=== PATIENT | female | born 1995 | race Caucasian/White ===

== ENCOUNTER 2017-01-05 16:20 | Inpatient (IN) | payer OTHER ==
[2017-01-05 16:15] VITALS: O2SAT 100
[2017-01-05] MEDS ORDERED: ONDANSETRON HCL 4 MG/2 ML VIAL ONE (16:24)
[2017-01-05] MEDS ORDERED: MORPHINE SULFATE 8 MG/ML INJ ONE (16:24)
[2017-01-05] MEDS ORDERED: DIPHTH/TETANUS/ACEL PERTUSSIS (BOOSTER) 0.5 ML VIAL/PFS IM ONE (16:27)
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
[2017-01-05] MEDS ORDERED: IOHEXOL 350 MG/ML 10 ML VIAL (for RAD DIAG) IV ONE (16:56)
[2017-01-05] MEDS ORDERED: LORazepam 2 MG/ML VIAL ONE (16:56)
[2017-01-05] MEDS ORDERED: KETAMINE HCL 500 MG/5 ML VIAL ONE (16:56)
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
[2017-01-05] MEDS ORDERED: LIDOCAINE 1%/EPINEPHrine 1:100,000 SOLN 50 ML VIAL ONE (16:57)
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
[2017-01-05] MEDS ORDERED: KETAMINE HCL 500 MG/5 ML VIAL IV PUSH ONE (17:00)
[2017-01-05] MEDS ORDERED: LIDOCAINE 1%/EPINEPHrine 1:100,000 SOLN 20 ML VIAL INFIL ONE (17:00)
[2017-01-05] MEDS ORDERED: LORazepam 2 MG/ML VIAL IV PUSH ONE (17:00)
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
[2017-01-05 17:04] LABS: I-STAT POTASSIUM 3.4 MMOL/L (3.5-4.9)
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
[2017-01-05 17:06] LABS: AUTOMATED NEUTROPHIL # 8.3 TH/MM3 (1.8-7.7); BASOPHIL % 0.4 % (0.0-2.0); EOSINOPHIL # 0.2 TH/MM3 (0-0.4); EOSINOPHIL % 1.4 % (0.0-4.0); HEMATOCRIT 43.9 % (35.0-46.0); HEMO FLAGS DIFF FINAL; LYMPH % 26.5 % (9.0-44.0); LYMPHOCYTE # 3.3 TH/MM3 (1.0-4.8); MEAN CELL VOLUME 88.5 FL (80.0-100.0); MEAN CORPUSCULAR HEMOGLOBIN 29.2 PG (27.0-34.0); MONO % 5.7 % (0.0-8.0); PLATELET COUNT 315 TH/MM3 (150-450); RED BLOOD COUNT 4.96 MIL/MM3 (4.00-5.30); RED CELL DISTRIBUTION WIDTH 13.4 % (11.6-17.2); WHITE BLOOD COUNT 12.6 TH/MM3 (4.0-11.0)
[2017-01-05 17:15] LABS: PROTHROMBIN TIME - PATIENT 11.3 SEC (9.8-11.6)
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
[2017-01-05 18:09] VITALS: BP 124/65; PULSE 84; RESP 14
[2017-01-05] MEDS: SODIUM CHLOR 0.9% 1000 ML INJ 1,000 ML IV SCH (18:35)
[2017-01-05] MEDS ORDERED: MAGNESIUM HYDROXIDE SUSP 30 ML CUP PO PRN (18:45)
[2017-01-05] MEDS ORDERED: ONDANSETRON HCL 4 MG/2 ML VIAL IV PRN (18:45)
[2017-01-05] MEDS ORDERED: ENALAPRILAT 1.25 MG/ML VIAL IV PRN (18:45)
[2017-01-05] MEDS ORDERED: SODIUM CHLORIDE 0.9% FLUSH 10 ML FLUSH IV FLUSH PRN (18:45)
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
[2017-01-05] MEDS ORDERED: CLINDAMYCIN 600 MG/NS 100 ML IV ONE ×2 (19:00)
[2017-01-05 19:50] VITALS: BP 136/63; PULSE 87; O2SAT 86
[2017-01-05] MEDS ORDERED: PANTOPRAZOLE SODIUM 40 MG VIAL IVP SCH (20:00)
[2017-01-05 20:25] VITALS: BP 141/98; PULSE 98; RESP 16; O2SAT 100
[2017-01-05] MEDS ORDERED: DOCUSATE SODIUM 100 MG CAP PO SCH (21:00)
[2017-01-05] MEDS: ACETAMINOPHEN/HYDROcodone 325 MG/5 MG TAB PO PRN (21:17)
[2017-01-05 21:32] VITALS: BP 138/80; PULSE 98; RESP 18; TEMP 98.6; O2SAT 100
[2017-01-06] VITALS (7 sets, daily range): BP systolic 123–139; BP diastolic 70–77; PULSE 84–94; RESP 20; TEMP 96.6–99.6; O2SAT 92–100
[2017-01-06] MEDS: CLINDAMYCIN INJ 600 MG in SODIUM CHLORIDE 0.9% INJ 100 ML IV SCH ×3 (02:43→17:35)
[2017-01-06] MEDS: SODIUM CHLOR 0.9% 1000 ML INJ 1,000 ML IV SCH ×3 (03:39→19:50)
[2017-01-06] MEDS: ACETAMINOPHEN/HYDROcodone 325 MG/5 MG TAB PO PRN ×2 (06:39→11:30)
[2017-01-06] MEDS ORDERED: WALKER WHEELS/F1 MIS (07:56)
[2017-01-06] MEDS: METHOCARBAMOL 500 MG TAB PO SCH ×3 (08:41→22:46)
[2017-01-06] MEDS: DOCUSATE SODIUM 50 MG/SENNA 8.6 MG TAB PO SCH ×2 (08:41→19:50)
[2017-01-06 10:08] LABS: HEMATOCRIT 37.5 % (35.0-46.0); HEMO FLAGS DIFF FINAL; MEAN CELL VOLUME 88.4 FL (80.0-100.0); MEAN CORPUSCULAR HEMOGLOBIN 29.1 PG (27.0-34.0); MEAN CORPUSCULAR HGB CONC 32.9 % (32.0-36.0); PLATELET COUNT 207 TH/MM3 (150-450); RED BLOOD COUNT 4.25 MIL/MM3 (4.00-5.30); RED CELL DISTRIBUTION WIDTH 13.3 % (11.6-17.2); WHITE BLOOD COUNT 11.8 TH/MM3 (4.0-11.0)
[2017-01-06 10:09] LABS: AUTOMATED NEUTROPHIL # 9.9 TH/MM3 (1.8-7.7); BASOPHIL % 0.2 % (0.0-2.0); EOSINOPHIL % 0.1 % (0.0-4.0); LYMPH % 8.1 % (9.0-44.0); MONO % 8.1 % (0.0-8.0); NEUT % 83.5 % (16.0-70.0)
--- NOTE | 2017-01-06 18:21 | HHI.PR ---
Subjective Subjective Notes Complains of back pain Ambulated halls with PT Objective Vitals/I&O Vital Signs Date Time Temp Pulse Resp B/P Pulse Ox O2 Delivery O2 Flow Rate FiO2 01/06/17 15:43 98.6 86 20 124/77 99 01/05/17 20:25 Nasal Cannula 2 Labs Laboratory Tests Test 01/06/17 08:42 White Blood Count 11.8 Red Blood Count 4.25 Hemoglobin 12.3 Hematocrit 37.5 Mean Corpuscular Volume 88.4 Mean Corpuscular Hemoglobin 29.1 Mean Corpuscular Hemoglobin 32.9 Concent Red Cell Distribution Width 13.3 Platelet Count 207 Mean Platelet Volume 8.6 Neutrophils (%) (Auto) 83.5 Lymphocytes (%) (Auto) 8.1 Monocytes (%) (Auto) 8.1 Eosinophils (%) (Auto) 0.1 Basophils (%) (Auto) 0.2 Neutrophils # (Auto) 9.9 Lymphocytes # (Auto) 1.0 Monocytes # (Auto) 1.0 Eosinophils # (Auto) 0.0 Basophils # (Auto) 0.0 CBC Comment DIFF FINAL Differential Comment Radiology Last Impressions Pelvis X-Ray 01/05/171632 Signed Impressions: Service Date/Time: Thursday, January 05, 2017 16:16 - CONCLUSION: Negative trauma study. Sky Haney MD Head CT 01/05/171632 Signed Impressions: Service Date/Time: Thursday, January 05, 2017 16:30 - CONCLUSION: Mild soft tissue swelling with no evidence of fracture or hemorrhage. Sky Haney MD Chest X-Ray 01/05/171632 Signed Impressions: Service Date/Time: Thursday, January 05, 2017 16:16 - CONCLUSION: Negative trauma study. Sky Haney MD Chest CT 01/05/171632 Signed Impressions: Service Date/Time: Thursday, January 05, 2017 16:34 - CONCLUSION: Negative trauma CT. Sky Haney MD Cervical Spine CT 01/05/171632 Signed Impressions: Service Date/Time: Thursday, January 05, 2017 16:33 - CONCLUSION: Negative trauma CT. Sky Haney MD Abdomen/Pelvis CT 01/05/171632 Signed Impressions: Service Date/Time: Thursday, January 05, 2017 16:34 - CONCLUSION: Negative trauma study. Sky Haney MD Knee X-Ray 01/05/17 0000 Signed Impressions: Service Date/Time: Thursday, January 05, 2017 16:16 - CONCLUSION: Soft tissue laceration with no evidence of fracture on this single view study. Sky Haney MD Narrative Exam GENERAL: 21 year old woman lying in bed in no acute distress. SKIN: Warm and dry. Abrasion noted to chin. HEAD: Normocephalic. ENT: No nasal bleeding or discharge. Mucous membranes pink and moist. NECK: Trachea midline. No JVD. CARDIOVASCULAR: Regular rate and rhythm. RESPIRATORY: No accessory muscle use. Lungs clear and diminished to auscultation. Breath sounds equal bilaterally. GASTROINTESTINAL: Abdomen soft, nondistended, nontender. MUSCULOSKELETAL: Extremities without clubbing, cyanosis, or edema. No obvious deformities. LLE with CKS in place. MAEW. NEUROLOGICAL: Awake and alert. Normal speech. A/P Assessment and Plan INJURIES: Concussion LEFT knee soft tissue lac (adjacent to prox fibula) Diet: Regular, tolerating. Pulmonary: IS, encouraged use. Pain: [place] 1-2 tabs, IV Dilaudid. Robaxin. Pain controlled. Activity: OOB. PT evaluating GI: IV Protonix Bowel: Meena-colace. DVT: SCDs Plan of care discussed with patient and parents at bedside. Follow-up with PCP in one week for left knee suture removal. Patient is clear from Trauma surgery standpoint to safely discharge home. Attending Statement patient seen at bedside pt stable doing better ok to d/c from trauma stand point Attestation The exam, history, and the medical decision-making described in the above note were completed with the assistance of the mid-level provider. I reviewed and agree with the findings presented. I attest that I had a [id number] encounter with the patient on the same day, and personally performed and documented my assessment and findings in the medical record. Claudio Aleman Jan 06, 2017 18:21 Yony Tejada MD January 19, 2017 13:30
[2017-01-06] MEDS: HYDROmorphone HCL PF 1 MG/ML VIAL IVP PRN (19:50)
[2017-01-07 00:49] VITALS: BP 140/78; PULSE 94; RESP 22; TEMP 98.6; O2SAT 98
[2017-01-07] MEDS: HYDROmorphone HCL PF 1 MG/ML VIAL IVP PRN (01:31)
[2017-01-07] MEDS: CLINDAMYCIN INJ 600 MG in SODIUM CHLORIDE 0.9% INJ 100 ML IV SCH ×2 (01:34→11:16)
[2017-01-07] MEDS: SODIUM CHLOR 0.9% 1000 ML INJ 1,000 ML IV SCH ×3 (01:34→11:17)
[2017-01-07 05:19] VITALS: BP 117/68; PULSE 90; RESP 20; TEMP 98.8; O2SAT 98
[2017-01-07] MEDS: METHOCARBAMOL 500 MG TAB PO SCH (05:46)
[2017-01-07] MEDS: ACETAMINOPHEN/HYDROcodone 325 MG/5 MG TAB PO PRN ×2 (05:46→11:15)
[2017-01-07 07:12] LABS: HEMATOCRIT 36.6 % (35.0-46.0); MEAN CELL VOLUME 87.5 FL (80.0-100.0); MEAN CORPUSCULAR HEMOGLOBIN 29.6 PG (27.0-34.0); MEAN CORPUSCULAR HGB CONC 33.9 % (32.0-36.0); PLATELET COUNT 203 TH/MM3 (150-450); RED BLOOD COUNT 4.19 MIL/MM3 (4.00-5.30); RED CELL DISTRIBUTION WIDTH 12.9 % (11.6-17.2); REVIEW FLAG FINAL; WHITE BLOOD COUNT 7.7 TH/MM3 (4.0-11.0)
[2017-01-07 07:33] LABS: POTASSIUM 3.5 MEQ/L (3.5-5.1)
[2017-01-07 08:15] VITALS: BP 132/73; PULSE 79; RESP 18; TEMP 97.8; O2SAT 98
[2017-01-07] MEDS: DOCUSATE SODIUM 50 MG/SENNA 8.6 MG TAB PO SCH (08:30)
[2017-01-07] MEDS ORDERED: FAMOTIDINE 20 MG TAB PO SCH (09:00)
[2017-01-07 12:04] VITALS: BP 133/69; PULSE 86; RESP 18; TEMP 99.4; O2SAT 100
[2017-01-07] MEDS ORDERED: METH500T3 PO (12:35)
[2017-01-07] MEDS ORDERED: HYDR-3516 PO (12:36)
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
--- NOTE | 2017-01-26 15:43 | MP ---
cc: DEAN BARBOUR DATE OF SURGERY: 01/05/2017 TYPE OF PROCEDURE Repair of irrigation with closure of soft tissue injury lower extremities. PROCEDURE The patient is a trauma bay the patient was sedated by . <<0:58>> 1% lidocaine with epinephrine was used to anesthetize the skin and subcutaneous tissue, in the areas of injuries, in the left leg the deep wound extended into the soft tissue, did not appear to involve any muscularis so the wound was irrigated with copious amount of saline and was then prepped and draped sterilely. The subcutaneous tissue was approximated with 3-0 Vicryl and skin edges approximated with nino. There were some areas of skin that it had a questioned as to whether it would be viable but attempts at closures were made. This wound was irregularly shaped measuring about 10 cm. The wound on the patient's right leg was irrigated with copious amounts of saline, prepped sterilely. There was and area that was not able to close which was left opened, wet to dry dressing was placed. Another wound measuring approximately 5 cm was approximated with nino. Sterile dressing was then placed on post both these wounds. MD ELAN Echevarria/megan /2:12 PM /3:37 PM
== END 2017-01-07 14:39 | disposition home or self-care (01) | DRG 580 ==
LOC: NEPI 16:20 → NEDA 18:06 → EDBD 18:06 → N05B 20:56
PROVIDERS: ADMIT Surgery; ATTEND Surgery
PROC: 0JQP0ZZ Repair Left Lower Leg Subcutaneous Tissue and Fascia, Open Approach (ICD-10-PCS; principal; 2017-01-05)
PROC: 0JQN0ZZ Repair Right Lower Leg Subcutaneous Tissue and Fascia, Open Approach (ICD-10-PCS; 2017-01-05)
DX: S81.812A Laceration without foreign body, left lower leg, initial encounter (principal); S06.0X1A Concussion with loss of consciousness of 30 minutes or less, initial encounter; S81.811A Laceration without foreign body, right lower leg, initial encounter; S00.81XA Abrasion of other part of head, initial encounter; V43.52XA Car driver injured in collision with other type car in traffic accident, initial encounter
CPT/HCPCS: 12002; 12034; 70450; 71010; 71260; 72125; 72170; 73560; 74177; 80048; 82435; 82565; 82947; 84132; 84295; 84520; 85025; 85027; 85610; 85730; 86850; 86900; 86901; 90471; 90715; 94150; 96374; 96375; 99156; 99157; 99291; C9113; G0390; J1170; J2060; J2270; J2405; J7030; L1830; Q9967